=== PATIENT | male | born 1945 | race Caucasian/White ===

== ENCOUNTER 2018-03-30 21:11 | Inpatient (IN) | payer MEDICARE, OTHER ==
[~2018-03-30] VITALS: Ht 175.3 cm; Wt 114.8 kg
[2018-03-30 21:10] VITALS: BP 164/86
[~2018-03-30 21:11] MED LIST: ATENOLOL100 MG PO; BENAZEPRIL10 MG PO; BUPROPION150 MG PO; CLONIDINE0.3 MG PO; DILTIAZEM240 MG PO; FUROSEMIDE40 MG PO; GLIMEPIRIDE4 MG PO; HYDROCO/APAP1 T10 PO; ISOSORB MONO30 MG PO; LIPITOR80 M1 PO; METFORMIN HCL1000 MG PO; PLAVIX75 MG PO; TRIGLIDE160 MG PO; VICTOZA18 MG/3 ML SC
[2018-03-30 22:50] LABS: MAGNESIUM 1.6 mg/dL (1.6-2.3)
[2018-03-31 04:53] VITALS: BP 135/67
[2018-03-31 05:28] LABS: HEMATOCRIT 39.5 % (39.0-50.0); HEMOGLOBIN 13.4 g/dl (14.0-18.0); IMMATURE GRANULOCYTES 0.4 % (0.0-5.0); MEAN CORPUSCULAR HGB 30.9 pG CALC (26.0-32.0); MEAN CORPUSCULAR HGB CONC 33.9 g/L CALC (32.0-36.0); NEUT# 7.06 thou/uL (1.82-7.42); RED BLOOD COUNT 4.33 mill/uL (4.70-6.10); RED CELL DISTRI WIDTH 14.3 % (11.5-15.5)
[2018-03-31 05:30] LABS: MEAN CELL VOLUME 91.2 fL CALC (80.0-100.0)
[2018-03-31 05:53] LABS: ALBUMIN 4.2 g/dL (3.2-5.0); ALKALINE PHOSPHATASE 33 u/l (38-126); AMYLASE 39 u/l (30-110); BILIRUBIN, TOTAL 0.9 mg/dL (0.0-1.4); BUN 16 mg/dL (8-23); BUN/CREATININE RATIO 19 (12-20 (CALC)); CARBON DIOXIDE 24 mmol/l (22-30); CHLORIDE 94 mmol/l (95-108); CREATININE 0.9 mg/dL (0.7-1.3); GFR > 60 ML/MIN (>=60 (CALC)); GFR FOR AFR.AMER. > 60 ML/MIN (>=60 (CALC)); SGOT/AST 30 u/l (19-48); TOTAL PROTEIN 7.3 g/dL (6.3-8.2)
[2018-03-31 05:54] LABS: ANION GAP 18 (6-22 (CALC)); POTASSIUM 4.1 mmol/l (3.5-5.1); SODIUM 132 mmol/l (137-146)
[2018-03-31 07:56] VITALS: BP 145/72
[2018-03-31 16:11] VITALS: BP 90/50
[2018-03-31 20:48] VITALS: BP 114/61
[2018-04-01] VITALS (7 sets, daily range): BP systolic 92–142; BP diastolic 52–71
[2018-04-01 06:11] LABS: HEMATOCRIT 36.5 % (39.0-50.0); HEMOGLOBIN 12.1 g/dl (14.0-18.0); IMMATURE GRANULOCYTES 0.5 % (0.0-5.0); MEAN CELL VOLUME 92.6 fL CALC (80.0-100.0); MEAN CORPUSCULAR HGB 30.7 pG CALC (26.0-32.0); MEAN CORPUSCULAR HGB CONC 33.2 g/L CALC (32.0-36.0); NEUT# 4.38 thou/uL (1.82-7.42); RED BLOOD COUNT 3.94 mill/uL (4.70-6.10); RED CELL DISTRI WIDTH 14.4 % (11.5-15.5)
[2018-04-01 06:26] LABS: ALBUMIN 3.5 g/dL (3.2-5.0); ALKALINE PHOSPHATASE 27 u/l (38-126); AMYLASE < 30 u/l (30-110); ANION GAP 15 (6-22 (CALC)); BILIRUBIN, TOTAL 0.7 mg/dL (0.0-1.4); BUN 29 mg/dL (8-23); BUN/CREATININE RATIO 22 (12-20 (CALC)); CARBON DIOXIDE 24 mmol/l (22-30); CHLORIDE 99 mmol/l (95-108); CREATININE 1.3 mg/dL (0.7-1.3); GFR 54 ML/MIN (>=60 (CALC)); GFR FOR AFR.AMER. > 60 ML/MIN (>=60 (CALC)); LIPASE 166 u/l (23-300); MAGNESIUM 1.9 mg/dL (1.6-2.3); POTASSIUM 3.6 mmol/l (3.5-5.1); SGOT/AST 36 u/l (19-48); SODIUM 134 mmol/l (137-146); TOTAL PROTEIN 6.2 g/dL (6.3-8.2)
[2018-04-01 12:12] LABS: URINE BILIRUBIN - DIPSTICK NEGATIVE (NEGATIVE); URINE BLOOD DIPSTICK NEGATIVE (NEGATIVE); URINE COLOR YELLOW; URINE GLUCOSE - DIPSTICK 100 mg/dL (NEGATIVE); URINE KETONE NEGATIVE (NEGATIVE); URINE LEUK ESTERASE NEGATIVE (Negative); URINE NITRITE - DIPSTICK NEGATIVE (Negative); URINE PROTEIN - DIPSTICK NEGATIVE (NEG-TRACE); URINE SPECIFIC GRAVITY 1.025; URINE UROBILINOGEN - DIPSTICK 0.2 E.U./dL (0.2)
[2018-04-01 12:36] LABS: URINE CLARITY CLEAR
[2018-04-01] MEDS ORDERED: ISOSORB MONO30 MG PO (14:05)
[2018-04-01] MEDS ORDERED: BENAZEPRIL10 M1 PO (14:05)
[2018-04-02 04:13] VITALS: BP 145/71
[2018-04-02 05:56] LABS: HEMATOCRIT 41.7 % (39.0-50.0); HEMOGLOBIN 13.6 g/dl (14.0-18.0); IMMATURE GRANULOCYTES 0.4 % (0.0-5.0); MEAN CELL VOLUME 93.7 fL CALC (80.0-100.0); MEAN CORPUSCULAR HGB 30.6 pG CALC (26.0-32.0); MEAN CORPUSCULAR HGB CONC 32.6 g/L CALC (32.0-36.0); NEUT# 4.7 thou/uL (1.82-7.42); RED BLOOD COUNT 4.45 mill/uL (4.70-6.10); RED CELL DISTRI WIDTH 14.4 % (11.5-15.5)
[2018-04-02 06:02] LABS: ALBUMIN 4.2 g/dL (3.2-5.0); BUN 22 mg/dL (8-23); CARBON DIOXIDE 23 mmol/l (22-30); CHLORIDE 100 mmol/l (95-108); CREATININE 1.2 mg/dL (0.7-1.3); GFR 59 ML/MIN (>=60 (CALC)); GFR FOR AFR.AMER. > 60 ML/MIN (>=60 (CALC)); POTASSIUM 3.8 mmol/l (3.5-5.1); SODIUM 139 mmol/l (137-146)
[2018-04-02 06:13] LABS: ALKALINE PHOSPHATASE 33 u/l (38-126); ANION GAP 21 (6-22 (CALC)); BILIRUBIN, TOTAL 0.7 mg/dL (0.0-1.4); BUN 23 mg/dL (8-23); BUN/CREATININE RATIO 19 (12-20 (CALC)); CARBON DIOXIDE 21 mmol/l (22-30); CHLORIDE 100 mmol/l (95-108); CREATININE 1.2 mg/dL (0.7-1.3); GFR 59 ML/MIN (>=60 (CALC)); GFR FOR AFR.AMER. > 60 ML/MIN (>=60 (CALC)); POTASSIUM 3.9 mmol/l (3.5-5.1); SGOT/AST 38 u/l (19-48); SODIUM 138 mmol/l (137-146)
[2018-04-02 06:19] LABS: ALBUMIN 4.3 g/dL (3.2-5.0); TOTAL PROTEIN 7.5 g/dL (6.3-8.2)
[2018-04-02 08:51] VITALS: BP 122/56
[2018-04-02 08:57] VITALS: BP 122/56
[2018-04-02] MEDS ORDERED: CIPROFLOXACN500 MG PO (10:43)
== END 2018-04-02 12:52 | disposition home or self-care (01) | DRG 698 ==
LOC: MS2 21:11
PROVIDERS: Internal Medicine Nephrology; ADMIT Internal Medicine; ATTEND Internal Medicine
DX: N28.1 Cyst of kidney, acquired (principal); K85.80 Other acute pancreatitis without necrosis or infection; E87.1 Hypo-osmolality and hyponatremia; I13.10 Hypertensive heart and chronic kidney disease without heart failure, with stage 1 through stage 4 chronic kidney disease, or unspecified chronic kidney disease; N17.9 Acute kidney failure, unspecified; I25.10 Atherosclerotic heart disease of native coronary artery without angina pectoris; E78.5 Hyperlipidemia, unspecified; G47.33 Obstructive sleep apnea (adult) (pediatric); D63.8 Anemia in other chronic diseases classified elsewhere; J44.9 Chronic obstructive pulmonary disease, unspecified; G89.4 Chronic pain syndrome; N20.0 Calculus of kidney; E66.01 Morbid (severe) obesity due to excess calories; E11.22 Type 2 diabetes mellitus with diabetic chronic kidney disease; N18.3 Chronic kidney disease, stage 3 (moderate); I25.2 Old myocardial infarction; Z87.891 Personal history of nicotine dependence; Z95.5 Presence of coronary angioplasty implant and graft; Z68.37 Body mass index [BMI] 37.0-37.9, adult; Z79.4 Long term (current) use of insulin

== ENCOUNTER 2023-07-07 14:18 | Inpatient (IN) | payer MEDICARE, OTHER ==
[2023-07-07] VITALS (13 sets, daily range): BP systolic 112–148; BP diastolic 52–76
[~2023-07-07] VITALS: Ht 167.6 cm; Wt 104.5 kg
[~2023-07-07 14:18] MED LIST changes: +AMITRIPTYLINE H50 MG PO; +AMLODIPINE BESY10 MG PO; +ASPIRINCHW 81MG PO; +BENAZEPRIL10 M1 PO; +CARVEDILOL6.25 MG PO; +CIPROFLOXACN500 MG PO; +CLINDAMYCIN300 M1 PO; +COLACE100 MG PO; +FERROUS SULFAT325 MG PO; +LASIX 40 MG TAB40 MG PO; +LEVEMIR100 UNIT SC; +MECLIZINE25 MG PO; +NOVOLOG100 UNIT SC; +PROTONIX40 M2 PO; +REGLAN10 MG PO; +XANAX0.25 MG PO
[2023-07-07] MEDS ORDERED: cefTRIAXone SODIUM 2 GM in SODIUM CHLORIDE 0.9% 100 ML IV ONE (16:10)
[2023-07-07] MEDS ORDERED: AZITHROMYCIN 500 MG in SODIUM CHLORIDE 0.9% 250 ML IV ONE (16:10)
[2023-07-07] MEDS ORDERED: CARVEDILOL3.125 MG PO (16:31)
[2023-07-07 16:32] LABS: BASO% 0.4 % (0-3); EOS% 1.6 % (0-8); HEMATOCRIT 34.7 % (39.0-50.0); HEMOGLOBIN 10.9 g/dl (14.0-18.0); IMMATURE GRANULOCYTES 0.3 % (0.0-5.0); LYMPH% 17.4 % (15-41); MEAN CELL VOLUME 81.6 fL CALC (80.0-100.0); MEAN CORPUSCULAR HGB 25.6 pG CALC (26.0-32.0); MEAN CORPUSCULAR HGB CONC 31.4 g/dL CAL (32.0-36.0); MONO% 9.6 % (2-13); NEUT# 7.56 thou/uL (1.82-7.42); NEUT% 70.7 % (42-76); RED BLOOD COUNT 4.25 mill/uL (4.70-6.10); RED CELL DISTRI WIDTH 17.2 % (11.5-15.5)
[2023-07-07] MEDS ORDERED: ANORO ELLIPTA 61 AER IN (16:32)
[2023-07-07] MEDS ORDERED: AMITRIPTYLINE H75 M1 PO (16:34)
[2023-07-07] MEDS ORDERED: ELIQUIS5 MG PO (16:36)
[2023-07-07] MEDS ORDERED: NITROGLYCE0.4 MG/SPR (16:38)
[2023-07-07 16:43] LABS: ALBUMIN 4.2 g/dL (3.2-5.0); ALKALINE PHOSPHATASE 110 u/l (38-126); ANION GAP 16 (6-22 (CALC)); BILIRUBIN, TOTAL 0.7 mg/dL (0.2-1.3); BUN 17 mg/dL (8-23); BUN/CREATININE RATIO 11 (12-20 (CALC)); CARBON DIOXIDE 25 mmol/l (22-30); CHLORIDE 99 mmol/l (95-108); CREATININE 1.5 mg/dL (0.7-1.3); GFR FOR AFR.AMER. 55 ML/MIN (>=60 (CALC)); GFR OTHER RACES 45 ML/MIN (>=60 (CALC)); POTASSIUM 3.4 mmol/l (3.5-5.1); SGOT/AST 46 u/l (19-48); SODIUM 137 mmol/l (137-146); TOTAL PROTEIN 8.4 g/dL (6.3-8.2)
[2023-07-07 18:46] LABS: URINE BILIRUBIN - DIPSTICK Negative (NEGATIVE); URINE BLOOD DIPSTICK Trace-intact (NEGATIVE); URINE GLUCOSE - DIPSTICK Negative (NEGATIVE); URINE KETONE Negative (NEGATIVE); URINE LEUK ESTERASE Trace (NEGATIVE); URINE NITRITE - DIPSTICK Negative (Negative); URINE PROTEIN - DIPSTICK 100 mg/dL (NEG-TRACE); URINE SPECIFIC GRAVITY 1.015
[2023-07-07 18:47] LABS: URINE COLOR Yellow
[2023-07-07 18:54] LABS: URINE BACTERIA MODERATE hpf
[2023-07-07] MEDS ORDERED: SODIUM CHLORIDE 0.9% 1,000 ML BAG IV ONE (19:40)
[2023-07-07] MEDS ORDERED: POTASSIUM CHLORIDE 20 MEQ/PKT POWDER PO ONE (21:15)
[2023-07-08] VITALS (25 sets, daily range): BP systolic 125–158; BP diastolic 59–92
[2023-07-08] MEDS ORDERED: VANCOMYCIN HCL IV STA (01:25)
[2023-07-08] MEDS ORDERED: ACETAMINOPHEN 325 MG/TAB PO PRN (01:25)
[2023-07-08] MEDS ORDERED: MAGNESIUM HYDROXIDE 30 ML UDC PO PRN (01:25)
[2023-07-08] MEDS ORDERED: SODIUM CHLORIDE 0.9% IV STA (01:25)
[2023-07-08] MEDS ORDERED: SODIUM CHLORIDE 0.9% 1,000 ML IV ONE (01:30)
[2023-07-08] MEDS ORDERED: CLARIFY DOSE PO PRN (01:40)
[2023-07-08] MEDS ORDERED: SODIUM CHLORIDE 0.9% IV SCH (06:00)
[2023-07-08] MEDS ORDERED: PIPERACILLIN SODIUM TAZOBACTAM IV SCH (06:00)
[2023-07-08] MEDS ORDERED: PIPERACILLIN Sodium-Tazobactam 3.375 GM in SODIUM CHLORIDE 0.9% 100 ML IV SCH ×3 (06:00→12:00)
[2023-07-08] MEDS ORDERED: DEXTROSE 250 ML IV PRN ×2 (06:25→09:50)
[2023-07-08] MEDS ORDERED: NITROGLYCERIN 0.4 MG/TAB SL PRN (06:45)
[2023-07-08] MEDS ORDERED: ALPRAZolam 0.25 MG PO PRN (06:45)
[2023-07-08] MEDS ORDERED: IPRATROPIUM-Albuterol 0.5MG-2.5MG/3 ML NEB SCH (07:00)
[2023-07-08] MEDS ORDERED: INSULIN LISPRO 100 UNITS/ML ML SC SCH (07:00)
[2023-07-08 07:51] LABS: BASO% 0.3 % (0-3); EOS% 2.2 % (0-8); HEMATOCRIT 32.6 % (39.0-50.0); HEMOGLOBIN 10.2 g/dl (14.0-18.0); IMMATURE GRANULOCYTES 0.3 % (0.0-5.0); LYMPH% 21.1 % (15-41); MEAN CELL VOLUME 81.1 fL CALC (80.0-100.0); MEAN CORPUSCULAR HGB 25.4 pG CALC (26.0-32.0); MEAN CORPUSCULAR HGB CONC 31.3 g/dL CAL (32.0-36.0); MONO% 9.9 % (2-13); NEUT# 7.01 thou/uL (1.82-7.42); NEUT% 66.2 % (42-76); RED BLOOD COUNT 4.02 mill/uL (4.70-6.10); RED CELL DISTRI WIDTH 17.5 % (11.5-15.5)
[2023-07-08 08:24] LABS: ALBUMIN 3.6 g/dL (3.2-5.0); ALKALINE PHOSPHATASE 113 u/l (38-126); ANION GAP 14 (6-22 (CALC)); BILIRUBIN, TOTAL 0.7 mg/dL (0.2-1.3); BUN 15 mg/dL (8-23); BUN/CREATININE RATIO 12 (12-20 (CALC)); CARBON DIOXIDE 23 mmol/l (22-30); CHLORIDE 104 mmol/l (95-108); CREATININE 1.3 mg/dL (0.7-1.3); GFR FOR AFR.AMER. > 60 ML/MIN (>=60 (CALC)); GFR OTHER RACES 53 ML/MIN (>=60 (CALC)); MAGNESIUM 1.9 mg/dL (1.6-2.3); POTASSIUM 3.7 mmol/l (3.5-5.1); SGOT/AST 38 u/l (19-48); SODIUM 137 mmol/l (137-146); TOTAL PROTEIN 6.9 g/dL (6.3-8.2)
[2023-07-08] MEDS ORDERED: ALBUTEROL SULFATE 8 GM INH IN SCH (08:30)
[2023-07-08] MEDS ORDERED: CLOPIDOGREL BISULFATE 75 MG/TAB TAB PO SCH (09:00)
[2023-07-08] MEDS ORDERED: APIXABAN BASE 5 MG TAB PO SCH (09:00)
[2023-07-08] MEDS ORDERED: ISOSORBIDE MONONITRATE 20 MG TAB PO SCH (09:00)
[2023-07-08] MEDS ORDERED: PANTOPRAZOLE SODIUM Sesquihydr 40 MG/TAB PO SCH (09:00)
[2023-07-08] MEDS ORDERED: INSULIN DETEMIR 100 UNITS/ML SC SCH (10:00)
[2023-07-08] MEDS ORDERED: ALBUTEROL SULFATE 8 GM INH IN PRN (10:05)
[2023-07-08] MEDS ORDERED: Levofloxacin 750 mg Premix 150 ML IV SCH (12:00)
[2023-07-08] MEDS ORDERED: IRON SUCROSE COMPLEX 200 MG in SODIUM CHLORIDE 0.9% 100 ML IV SCH (15:00)
[2023-07-08] MEDS ORDERED: SODIUM CHLORIDE 0.9% 1,000 ML IV PRN (16:30)
[2023-07-08] MEDS ORDERED: ATORVASTATIN CALCIUM 40 MG/TAB PO SCH (21:00)
[2023-07-08] MEDS ORDERED: CARVEDILOL 25 MG/TAB PO SCH (21:00)
[2023-07-09] VITALS (13 sets, daily range): BP systolic 122–160; BP diastolic 65–100
[2023-07-09 05:36] LABS: BASO% 0.5 % (0-3); EOS% 3.8 % (0-8); HEMATOCRIT 31.9 % (39.0-50.0); HEMOGLOBIN 10.1 g/dl (14.0-18.0); IMMATURE GRANULOCYTES 0.3 % (0.0-5.0); LYMPH% 17.8 % (15-41); MEAN CELL VOLUME 82.6 fL CALC (80.0-100.0); MEAN CORPUSCULAR HGB 26.2 pG CALC (26.0-32.0); MEAN CORPUSCULAR HGB CONC 31.7 g/dL CAL (32.0-36.0); MONO% 8.5 % (2-13); NEUT# 7.35 thou/uL (1.82-7.42); NEUT% 69.1 % (42-76); RED BLOOD COUNT 3.86 mill/uL (4.70-6.10); RED CELL DISTRI WIDTH 17.6 % (11.5-15.5)
[2023-07-09 05:53] LABS: ALBUMIN 3.6 g/dL (3.2-5.0); ALKALINE PHOSPHATASE 109 u/l (38-126); ANION GAP 13 (6-22 (CALC)); BILIRUBIN, TOTAL 0.7 mg/dL (0.2-1.3); BUN 14 mg/dL (8-23); BUN/CREATININE RATIO 11 (12-20 (CALC)); CARBON DIOXIDE 23 mmol/l (22-30); CHLORIDE 106 mmol/l (95-108); CREATININE 1.3 mg/dL (0.7-1.3); GFR FOR AFR.AMER. > 60 ML/MIN (>=60 (CALC)); GFR OTHER RACES 53 ML/MIN (>=60 (CALC)); POTASSIUM 3.6 mmol/l (3.5-5.1); SGOT/AST 36 u/l (19-48); SODIUM 139 mmol/l (137-146)
[2023-07-09] MEDS ORDERED: AZITHROMYCIN 500 MG in SODIUM CHLORIDE 0.9% 250 ML IV SCH (08:00)
[2023-07-09] MEDS ORDERED: ZITHROMAX250 MG PO (13:33)
[2023-07-09] MEDS ORDERED: OMNICEF300 MG PO (13:33)
== END 2023-07-09 16:26 | disposition home health service (06) | DRG 194 ==
LOC: ED 14:18 → ED-I 22:35 → ICU 22:35 → ED 22:35 → ICU 07-09 16:26
PROVIDERS: Family Medicine; ADMIT Student in an Organized Health Care Education/Training Program; ATTEND Student in an Organized Health Care Education/Training Program
DX: J18.9 Pneumonia, unspecified organism (principal); C18.9 Malignant neoplasm of colon, unspecified; N39.0 Urinary tract infection, site not specified; E87.20 Acidosis, unspecified; I11.0 Hypertensive heart disease with heart failure; I50.9 Heart failure, unspecified; E11.9 Type 2 diabetes mellitus without complications; I48.91 Unspecified atrial fibrillation; I25.10 Atherosclerotic heart disease of native coronary artery without angina pectoris; E78.5 Hyperlipidemia, unspecified; E66.9 Obesity, unspecified; G47.33 Obstructive sleep apnea (adult) (pediatric); Z99.81 Dependence on supplemental oxygen; Z79.4 Long term (current) use of insulin; Z95.5 Presence of coronary angioplasty implant and graft; Z79.01 Long term (current) use of anticoagulants; Z20.822 Contact with and (suspected) exposure to COVID-19
CPT/HCPCS: J1756; Q9967